=== PATIENT | male | born 1960 | race Caucasian/White ===

== ENCOUNTER 2018-05-22 18:41 | Emergency (ER) | payer OTHER ==
[~2018-05-22] VITALS: Ht 160 cm; Wt 80.7 kg
[2018-05-22 18:47] VITALS: BP 160/95
--- NOTE | 2018-05-22 19:04 | NUR ---
58Y/M BIB W/ C/O ABSCESS TO LEFT BUTTOCK X 1 WEEK. PAIN 9/10 SHARP. REDNESS NOTED TO THE SITE. PT AAOX4. GCS 15. CMS INTACT. AMBULATORY W/ STEADY GAIT. DENIES N/V/D/FEVER/CHILLS. BED DOWN; BEDRAIL UP X 1; ER MD AWARE AND NOTIFIED OF PT STATUS. HX DENIES RX BACTRIM, IBUPROFEN 800MG
--- NOTE | 2018-05-22 19:13 | NUR ---
GAVE REPORT TO ALEXIS REBOLLEDO
--- NOTE | 2018-05-22 19:24 | NUR ---
Dr. Alvarado evaluating patient at bedside.
[2018-05-22] MEDS ORDERED: LIDOCAINE 2% 1000 MG/50 ML VIAL INJ ONE (19:40)
--- NOTE | 2018-05-22 20:00 | NUR ---
Dr. Alvarado at bedside for incision and drainage of abscess.
[2018-05-22] MEDS ORDERED: LIDOCAINE MPF 1% - 5 mL VIAL 10 ML ONE (20:03)
--- NOTE | 2018-05-22 20:04 | NUR ---
LIDOCAINE ADMINISTERED BY DR LEON.
[2018-05-22 20:45] VITALS: BP 160/95
--- NOTE | 2018-05-22 20:45 | NUR ---
Patient discharged with v/s stable. Written and verbal after care instructions given and explained. Patient verbalized understanding. Ambulatory with steady gait. All questions addressed prior to discharge. Advised to follow up with PMD.
== END 2018-05-22 20:45 | disposition home or self-care (01) ==
LOC: MED 18:41
DX: K61.0 Anal abscess (principal)
CPT/HCPCS: 46050; 99284; J2001

== ENCOUNTER 2018-05-25 08:08 | Emergency (ER) | payer OTHER ==
[~2018-05-25] VITALS: Ht 165.1 cm; Wt 83.0 kg
[2018-05-25 08:21] VITALS: BP 160/84
--- NOTE | 2018-05-25 08:25 | NUR ---
Gave report to Maria Antonia ESPINOZA.
--- NOTE | 2018-05-25 08:25 | NUR ---
Patient ambulated to bed 7.
--- NOTE | 2018-05-25 08:30 | NUR ---
58YO M TO ER FOR wound recheck for perianal abscess. patient denies any fevers or chills. PAIN 5/10. LS CLEAR THROUGHOUT, BS ACTIVE X4 ABD ROUND NON-TENDER. NO S/S OF INFECTION NOTED AT ABCESS SITE. NO DRAINAGE OR REDNESS. ER MD MADE AWARE. WILL CONTINUE TO MONITOR. hx--patient denies rx--abx prescriped during last visit
--- NOTE | 2018-05-25 08:35 | NUR ---
Patient being evaluated by physician at bedside.
[2018-05-25 08:55] VITALS: BP 156/85
== END 2018-05-25 08:55 | disposition home or self-care (01) ==
LOC: MED 08:08
DX: Z48.02 Encounter for removal of sutures (principal); R03.0 Elevated blood-pressure reading, without diagnosis of hypertension
CPT/HCPCS: 99285

== ENCOUNTER 2022-09-28 22:45 | Emergency (ER) | payer OTHER ==
[~2022-09-28] VITALS: Ht 162.6 cm; Wt 83.9 kg
[2022-09-28 22:56] VITALS: BP 123/76
--- NOTE | 2022-09-28 23:00 | NUR ---
TO LOBBY A/W BED AMBULATORY WITH SON.
--- NOTE | 2022-09-28 23:43 | NUR ---
PT TO BED #10. DR HUMPHREYS AT BEDSIDE
[2022-09-28] MEDS ORDERED: LIDOCAINE/EPI 2% 1:100000 20 ML VIAL INJ ONE ×2 (23:48→23:55)
[2022-09-28] MEDS ORDERED: LIDOCAINE/EPI MPF 1%1:200000 30 ML VIAL INJ ONE (23:50)
--- NOTE | 2022-09-28 23:50 | NUR ---
LIDOCAINE 1% WITH EPI UNAVAIBLE. PER DR. HUMPHREYS LIDOCAINE 2% WITH EPI OKAY.
[2022-09-29 00:13] VITALS: BP 123/76
--- NOTE | 2022-09-29 00:13 | NUR ---
D/C BY .Patient discharged with v/s stable. Written and verbal after care instructions given and explained. Patient verbalized understanding. Ambulatory with by SON. All questions addressed prior to discharge. Advised to follow up with PMD.
== END 2022-09-29 00:13 | disposition home or self-care (01) ==
LOC: MED 22:45
DX: S01.312A Laceration without foreign body of left ear, initial encounter (principal); R32 Unspecified urinary incontinence; X58.XXXA Exposure to other specified factors, initial encounter; Y93.89 Activity, other specified; Y92.89 Other specified places as the place of occurrence of the external cause; Y99.8 Other external cause status
CPT/HCPCS: 12011; 99282; J2001